=== PATIENT | female | born 1980 | race American Indian/Alaskan Native ===

== ENCOUNTER 2018-11-22 08:46 | Emergency (ER) | payer OTHER, MEDICAID ==
[2018-11-22 08:59] VITALS: BP 117/70
[2018-11-22] MEDS ORDERED: IBUPROFEN PO ONE (09:25)
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
== END 2018-11-22 10:23 | disposition home or self-care (01) ==
LOC: ED 08:46
DX: M54.2 Cervicalgia (principal); M54.9 Dorsalgia, unspecified; M79.18 Myalgia, other site; V49.49XA Driver injured in collision with other motor vehicles in traffic accident, initial encounter; Y93.89 Activity, other specified; Y92.410 Unspecified street and highway as the place of occurrence of the external cause; Y99.8 Other external cause status
CPT/HCPCS: 72040

== ENCOUNTER 2020-09-03 15:46 | Emergency (ER) | payer MEDICAID, OTHER ==
[2020-09-03 16:33] LABS: Hemoglobin 12.2 gm/dl (10.1-14.3); Mean Corpuscular HGB Conc 33 % (30-34); Mean Corpuscular Volume 94 fl (79-97); Platelet Count 199 K/mm3 (140-440); Red Blood Count 3.94 M/mm3 (3.65-5.03); Red Cell Distribution Width 13.9 % (13.2-15.2)
[2020-09-03] MEDS ORDERED: KETOROLAC 30 MG/1 ML INJ IV ONE (16:35)
[2020-09-03] MEDS ORDERED: ONDANSETRON 4 MG/2 ML INJ IV ONE (16:35)
[2020-09-03] MEDS ORDERED: lamoTRIgine 100 MG TAB PO ONE (16:35)
[2020-09-03 16:48] LABS: Blood Urea Nitrogen 9 mg/dL (7-17); Hemolysis Index 5
[2020-09-03 16:49] LABS: BUN/Creatinine Ratio 15
--- NOTE | 2020-09-03 17:22 | Emergency Department Report ---
ED Seizure HPI - General Chief Complaint: Seizure Stated Complaint: SEIZURES Time Seen by Provider: 09/03/20 16:33 Source: patient, family Mode of arrival: Ambulatory Limitations: No Limitations - History of Present Illness Initial Comments: Patient is a 39-year-old F Citizen Of [place] female who is been noncompliant with her seizure medications for approximately a month. Patient had 2 seizures today. She has mild headache and some nausea. There is been no evidence of any trauma. Patient states that she her Medicaid was cut and this is why she is not been able to get her Lamictal. Patient has a history of being on Keppra but is no longer on this medication. - Related Data Previous Rx's Medication Instructions Recorded Last Taken Type Cyclobenzaprine [Flexeril] 10 mg PO TID PRN #10 tablet 11/22/18 Unknown Rx Naproxen [Naprosyn] 500 mg PO BID PRN #20 tablet 11/22/18 Unknown Rx methylPREDNISolone [Medrol] 4 mg PO DAILY #1 tab.ds.pk 11/22/18 Unknown Rx lamoTRIgine [LaMICtal] 150 mg PO BID #60 tab 09/03/20 Unknown Rx Allergies Allergy/AdvReac Type Severity Reaction Status Date / Time No Known Allergies Allergy Unverified 10/10/15 08:56 ED Review of Systems ROS: Stated complaint: SEIZURES Other details as noted in HPI Comment: All other systems reviewed and negative ED Past Medical Hx - Past Medical History Previous Medical History?: Yes Hx Seizures: Yes Additional medical history: Vaginal delivery x 4 - Surgical History Past Surgical History?: Yes Hx Coronary Stent: No Hx Open Heart Surgery: No Hx Pacemaker: No Hx Internal Defibrillator: No Hx Cholecystectomy: No Hx Appendectomy: No Hx Breast Surgery: No Additional Surgical History: 1997 - Social History Smoking Status: Never Smoker - Medications Home Medications: Home Medications Medication Instructions Recorded Confirmed Last Taken Type Cyclobenzaprine [Flexeril] 10 mg PO TID PRN #10 tablet 11/22/18 Unknown Rx Naproxen [Naprosyn] 500 mg PO BID PRN #20 tablet 11/22/18 Unknown Rx methylPREDNISolone [Medrol] 4 mg PO DAILY #1 tab.ds.pk 11/22/18 Unknown Rx lamoTRIgine [LaMICtal] 150 mg PO BID #60 tab 09/03/20 Unknown Rx ED Physical Exam - General Limitations: No Limitations General appearance: alert, in no apparent distress - Head Head exam: Present: atraumatic, normocephalic - Eye Eye exam: Present: normal appearance - ENT ENT exam: Present: mucous membranes moist - Neck Neck exam: Present: normal inspection - Respiratory Respiratory exam: Present: normal lung sounds bilaterally. Absent: respiratory distress, wheezes, rales, rhonchi - Cardiovascular Cardiovascular Exam: Present: regular rate, normal rhythm, normal heart sounds. Absent: systolic murmur, diastolic murmur, rubs, gallop - GI/Abdominal GI/Abdominal exam: Present: soft, normal bowel sounds. Absent: distended, tenderness, guarding, rebound - Extremities Exam Extremities exam: Present: normal inspection - Back Exam Back exam: Present: normal inspection - Neurological Exam Neurological exam: Present: alert, oriented X3 - Psychiatric Psychiatric exam: Present: normal affect, normal mood - Skin Skin exam: Present: warm, dry, intact, normal color. Absent: rash ED Course Vital Signs 09/03/20 09/03/20 16:10 16:56 Temperature 98.5 F Pulse Rate 80 Respiratory 18 18 Rate Blood Pressure 120/80 O2 Sat by Pulse 100 Oximetry ED Medical Decision Making - Lab Data Result diagrams: 09/03/20 16:19 09/03/20 16:19 Lab Results 09/03/20 09/03/20 Range/Units 16:19 16:19 WBC 7.7 (4.5-11.0) K/mm3 RBC 3.94 (3.65-5.03) M/mm3 Hgb 12.2 (10.1-14.3) gm/dl Hct 37.0 (30.3-42.9) % MCV 94 (79-97) fl MCH 31 (28-32) pg MCHC 33 (30-34) % RDW 13.9 (13.2-15.2) % Plt Count 199 (140-440) K/mm3 Sodium 138 (137-145) mmol/L Potassium 3.9 (3.6-5.0) mmol/L Chloride 106.4 (98-107) mmol/L Carbon Dioxide 25 (22-30) mmol/L Anion Gap 11 mmol/L BUN 9 (7-17) mg/dL Creatinine 0.6 (0.6-1.2) mg/dL Estimated GFR > 60 ml/min BUN/Creatinine Ratio 15 % Glucose 96 (65-100) mg/dL Calcium 9.0 (8.4-10.2) mg/dL - Medical Decision Making Patient given a loading dose of Lamictal and is to be discharged home. Laborato ry studies within normal limits. Critical care attestation.: If time is entered above; I have spent that time in minutes in the direct care of this critically ill patient, excluding procedure time. ED Disposition Clinical Impression: Seizure, Seizure secondary to subtherapeutic anticonvulsant medication Disposition: DC-01 TO HOME OR SELFCARE Is pt being admited?: No Does the pt Need Aspirin: No Condition: Stable Instructions: Epilepsy, [id number] Prescriptions: lamoTRIgine [LaMICtal] 150 mg PO BID #60 tab Referrals: PRIMARY CARE, [Primary Care Provider] - 3-5 Days Time of Disposition: 17:22
[2020-09-03 18:07] VITALS: BP 106/60
== END 2020-09-03 17:49 | disposition home or self-care (01) ==
LOC: ED 15:46
DX: R56.9 Unspecified convulsions (principal); R51.9 Headache, unspecified; R11.0 Nausea; Z98.890 Other specified postprocedural states; Z79.899 Other long term (current) drug therapy
CPT/HCPCS: 36415; 80048; 85027; 96374; 96375; 99284; J1885; J2405